=== PATIENT | female | born 1960 | race Two or more races ===

== ENCOUNTER 2023-09-02 09:35 | Day surgery (SDC) | payer OTHER ==
[~2023-09-02] VITALS: Ht 165.1 cm; Wt 68.9 kg
[~2023-09-02 09:35] MED LIST: CALCIUM500 M1 PO; CHILDREN'S ASPI81 MG PO; COZAAR25 MG PO; CRESTOR10 MG PO; VITAMIN C100 MG PO
== END 2023-09-02 17:15 | disposition home or self-care (01) ==
LOC: CIR.AMB 09:35
PROVIDERS: ATTEND Otolaryngology
DX: D11.0 Benign neoplasm of parotid gland (principal); Z20.822 Contact with and (suspected) exposure to COVID-19; I10 Essential (primary) hypertension; E78.5 Hyperlipidemia, unspecified